=== PATIENT | male | born 1985 | race Caucasian/White ===

== ENCOUNTER 2016-04-08 20:18 | Observation (INO) | payer OTHER ==
[2016-04-09 07:09] LABS: HEMOGLOBIN 12.8 gm/dl (14.0-17.5); RED BLOOD COUNT 4.44 M/UL (4.20-5.50); WHITE BLOOD COUNT 12.6 K/UL (4.5-11.0)
[2016-04-09 07:37] LABS: BUN/CREATININE RATIO 10 (0-10)
[2016-04-11 06:11] LABS: HEMOGLOBIN 11.4 gm/dl (14.0-17.5)
[2016-04-11 06:20] LABS: RED BLOOD COUNT 3.94 M/UL (4.20-5.50)
[2016-04-11] MEDS ORDERED: HYDROCODON-ACE1 EAC2 PO (14:42)
== END 2016-04-11 15:45 | disposition home or self-care (01) ==
LOC: M/S 20:18
PROVIDERS: Surgery; ADMIT Surgery
PROC: 0DTJ4ZZ Resection of Appendix, Percutaneous Endoscopic Approach (ICD-10-PCS; principal; 2016-04-09 16:30)
DX: K35.80 Unspecified acute appendicitis (principal)
CPT/HCPCS: 36415; 80048; 85027; 96374; 96375; 96376; G0378; G0379; J1100; J1335; J1885; J2250; J2270; J2405; J2710; J3010; J7030; J7050; J7120